=== PATIENT | male | born 1995 | race Caucasian/White ===

== ENCOUNTER 2018-02-15 20:17 | Emergency (ER) | payer OTHER ==
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
[2018-02-15] MEDS ORDERED: DIAZEPAM 5 MG TABLET PO ONE (23:14)
[2018-02-15] MEDS ORDERED: KETOROLAC TROMETHAMINE INJ/PF 30 MG/1 ML SDV IM ONE (23:14)
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
[2018-02-16 00:26] VITALS: BP 118/61
== END 2018-02-16 00:32 | disposition home or self-care (01) ==
LOC: ER 20:17
DX: S16.1XXA Strain of muscle, fascia and tendon at neck level, initial encounter (principal); S46.912A Strain of unspecified muscle, fascia and tendon at shoulder and upper arm level, left arm, initial encounter; S46.911A Strain of unspecified muscle, fascia and tendon at shoulder and upper arm level, right arm, initial encounter; R03.0 Elevated blood-pressure reading, without diagnosis of hypertension; V89.2XXA Person injured in unspecified motor-vehicle accident, traffic, initial encounter; F17.200 Nicotine dependence, unspecified, uncomplicated
CPT/HCPCS: 99284; 96372; 72050; 72110; 73030 ×2; 72070; 72125; J1885

== ENCOUNTER 2018-11-12 05:30 | Emergency (ER) | payer OTHER ==
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
[2018-11-12] MEDS ORDERED: KETOROLAC TROMETHAMINE INJ/PF 30 MG/1 ML SDV IM ONE (07:09)
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
[2018-11-12 07:31] VITALS: BP 103/68
== END 2018-11-12 07:52 | disposition home or self-care (01) ==
LOC: ER 05:30
DX: M62.838 Other muscle spasm (principal); M89.8X1 Other specified disorders of bone, shoulder; V49.9XXA Car occupant (driver) (passenger) injured in unspecified traffic accident, initial encounter
CPT/HCPCS: 99283; 96372; 73020; J1885

== ENCOUNTER 2019-06-29 16:16 | Emergency (ER) | payer OTHER ==
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
[2019-06-29 18:25] VITALS: BP 120/67
== END 2019-06-29 18:25 | disposition home or self-care (01) ==
LOC: ER 16:16
DX: M79.672 Pain in left foot (principal); W19.XXXD Unspecified fall, subsequent encounter; F17.210 Nicotine dependence, cigarettes, uncomplicated
CPT/HCPCS: 99283

== ENCOUNTER → 2019-07-02 | Outpatient (CLI) | payer OTHER ==
[~2019-07-02] MED LIST: BUPIVACAINE HCL 0.5%-EPI 1:200000 INJ/PF 30 ML VIAL ONE; BUPIVACAINE HCL 0.5%/EPI 1:200000 INJ 1.8 ML CARTRIDGE ONE; TRANEXAMIC ACID INJ/PF 1,000 MG/10 ML SDV ONE
--- NOTE | 2019-07-05 16:31 | RADIOLOGY REPORT (SQ) ---
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 TECHNIQUE: Left ankle images acquired and stored on PACS. Multiplanar images include fat sensitive s equences as T1, fluid sensitive sequences as FST2/STIR, cartilage sensitive sequences as FSPD, and gr adient echo sequences. LIMITATIONS: None. FINDINGS: BONE MARROW: Marrow edema throughout the inferior calcaneal tuberosity. There is mild inf erior subcortical linear signal in the midst of the edema, suspicious for subtle stress fracture. An terior to this in the calcaneal body, there is a circumscribed mass which fills the width of the calc aneus. This measures up to 2.7 cm transverse dimension. Relatively geographic and well-circumscribe d. Suspect a complicated cyst with mild heterogeneous signal within. On the coronal proton density sequence (series 3, image 14), there appears to be communication with the subtalar joint. EFFUSIONS: No subtalar or tibiotalar effusions. No loose bodies. OSSEOUS ARTICULATIONS: Normal tibiotalar, subtalar, talonavicular and calcaneocuboid joints. TALAR DOME AND TIBIAL PLAFOND: Normal cartilage. No osteochondral defect. ACHILLES TENDON: Intact without partial or full-thickness tear. No adjacent bursal fluid or edema. TIBIALIS ANTERIOR TENDON: Intact without edema at the 1st MT attachment. TIBIALIS POSTERIOR TENDON: Normal morphology and no edema at the navicular attachment. No tendon batista th fluid. FLEXOR HALLUCIS LONGUS AND FLEXOR DIGITORUM TENDONS: Normal morphology and no tendon sheath fluid. No edema of the os trigonum. PERONEUS LONGUS AND BREVIS TENDON: Normal morphology and no tendon sheath fluid. No subluxation. ATFL, CFL, PTFL: Generally intact. Small corticated avulsion fragment is suggested along the tip of the fibula. This contains no edema and looks chronic. DELTOID LIGAMENT: Visualized components intact. TARSAL TUNNEL: No masses. No muscle atrophy. SINUS TARSI: No fluid. No reactive marrow edema or erosions. PLANTAR FASCIA: No signal alteration or tear. ADJACENT SOFT TISSUES: No masses. OTHER: No other significant finding. IMPRESSION: 1. Mild stress fracture in the calcaneal tuberosity with associated edema. 2. Cyst in the mid calcaneus looks slightly complicated. At least a portion of this may be related t o intraosseous ganglion communicating with the subtalar joint (which otherwise looks normal). No kaye dence of fracture of this lesion. 3. Ligaments and tendons generally intact about the ankle. Findings discussed with Dr. Gordon 07/05/2019. TECHNICAL DOCUMENTATION: JOB ID: [id number] [employer]- All Rights Reserved Reading location - IP/workstation name: [email or web address]
== END ==
LOC: RAD 13:05
PROVIDERS: ATTEND Orthopaedic Surgery
DX: D36.7 Benign neoplasm of other specified sites (principal)

== ENCOUNTER 2019-07-07 05:27 | Day surgery (SDC) | payer OTHER ==
[~2019-07-07 05:27] MED LIST changes: -BUPIVACAINE HCL 0.5%-EPI 1:200000 INJ/PF 30 ML VIAL ONE; -BUPIVACAINE HCL 0.5%/EPI 1:200000 INJ 1.8 ML CARTRIDGE ONE; +CEFAZOLIN SODIUM 2 GM in DEXTROSE 5%-WATER 100 ML IV PRN; -TRANEXAMIC ACID INJ/PF 1,000 MG/10 ML SDV ONE
[2019-07-07] MEDS ORDERED: ALBUTEROL SULFATE 0.083% NEB 2.5 MG/3 ML AMPUL NEB ONE (06:25)
[2019-07-07] MEDS ORDERED: PROPOFOL INJ 200 MG/20 ML VIAL IV ONE (06:42)
[2019-07-07] MEDS ORDERED: MIDAZOLAM 2 MG/2 ML INJ ONE (06:42)
[2019-07-07] MEDS ORDERED: FENTANYL CITRATE INJ/PF 100 MCG/2 ML AMPUL ONE ×3 (06:42→09:18)
[2019-07-07 06:47] LABS: ABSOLUTE EOSINOPHILS # (AUTO) 0.3 10^3/uL (0.0-0.6); ABSOLUTE LYMPHOCYTES (AUTO) 3.6 10^3/uL (0.5-4.7); ABSOLUTE MONOCYTES (AUTO) 0.9 10^3/uL (0.1-1.4); ABSOLUTE NEUT (AUTO) 4.3 10^3/uL (1.7-8.2); BASOPHILS % (AUTO) 0.5 % (0-2); EOSINOPHILS % (AUTO) 2.8 % (0-6); HEMATOCRIT 43.1 % (37.9-51.0); HEMOGLOBIN 14.6 g/dL (13.5-17.0); LYMPHOCYTES % (AUTO) 39.4 % (13-45); MEAN CORPUSCULAR HEMOGLOBIN 30.6 pg (27.0-33.4); MEAN CORPUSCULAR VOLUME 90 fl (80-97); MONOCYTES % (AUTO) 9.9 % (3-13); PLATELET COUNT 234 10^3/uL (150-450); RED BLOOD COUNT 4.79 10^6/uL (4.35-5.55); RED CELL DISTRIBUTION WIDTH 13.3 % (11.5-14.0); SEGMENTED NEUTROPHILS % (AUTO) 47.4 % (42-78); TOTAL CELLS COUNTED % (AUTO) 100 %; WHITE BLOOD COUNT 9.2 10^3/uL (4.0-10.5)
[2019-07-07 06:56] LABS: ANION GAP 6 (5-19); BLOOD UREA NITROGEN 10 mg/dL (7-20); CALCIUM 9.4 mg/dL (8.4-10.2); CARBON DIOXIDE 29 mmol/L (22-30); CHLORIDE 105 mmol/L (98-107); GLUCOSE 91 mg/dL (75-110); POTASSIUM 4.3 mmol/L (3.6-5.0)
[2019-07-07] MEDS ORDERED: BUPIVACAINE HCL 0.5%-EPI 1:200000 INJ/PF 30 ML VIAL INJ ONE (07:52)
[2019-07-07] MEDS ORDERED: DIPHENHYDRAMINE HCL 50 MG/ML VIAL IV PRN (07:54)
[2019-07-07] MEDS ORDERED: OXYCODONE-ACETAMINOPHEN 5-325 MG TABLET PO PRN ×2 (07:54)
[2019-07-07] MEDS ORDERED: PROMETHAZINE HCL INJ 25 MG/1 ML VIAL IV PRN ×2 (07:54)
[2019-07-07] MEDS ORDERED: FENTANYL CITRATE INJ/PF 100 MCG/2 ML AMPUL IV PRN ×3 (07:54)
[2019-07-07] MEDS ORDERED: MEPERIDINE HCL/PF INJ 25 MG/1 ML DISP.SYRIN IV PRN (07:54)
[2019-07-07] MEDS ORDERED: HYDROMORPHONE HCL INJ/PF 2 MG/ML AMPULE ONE (07:56)
--- NOTE | 2019-07-07 08:41 | Discharge Summary ---
Discharge Summary (SDC) - Discharge Final Diagnosis: Left calcaneal neoplasm Date of Surgery: 07/07/19 Discharge Date: 07/07/19 Condition: Good Treatment or Instructions: Weightbearing as tolerated in the cam walker. Leave compressive wrap in place until you return to the office. Prescriptions: Oxycodone HCl/Acetaminophen [Percocet 5-325 mg Tablet] 1 tab PO Q6 PRN #40 tablet PRN Reason: Discharge Diet: As Tolerated, Regular Discharge Activity: Balance Activity w/Rest, No tub bath Home Care Assistance: None Needed Report the Following to Your Physician Immediately: Shortness of Breath, Fever over 101 Degrees, Drainage-Foul Smelling
--- NOTE | 2019-07-07 08:44 | Operative Report ---
Operative Report DATE OF SURGERY: 07/07/19 PREOPERATIVE DIAGNOSIS: Left calcaneal neoplasm OPERATION: Marginal resection left calcaneal neoplasm SURGEON: ELIU ADAMSON ANESTHESIA: GA TISSUE REMOVED OR ALTERED: Frozen section sent to pathology. Diagnosis returned as sufficient tissue for future diagnosis ESTIMATED BLOOD LOSS: 50 PROCEDURE: With the patient in a decubitus position on the operative table left lower extremities prepped and draped in sterile fashion. Limb is elevated for exsanguination tourniquet inflated 280 torr. A curvilinear incision was made over the lateral surface the calcaneus along its posterior and plantar aspects. A single soft tissue flap is raised including the calcaneal periosteum. The underlying palpable calcaneal cortical bone is visualized. An osteotome was used to fashion a cortical opening in the underlying tissues removed using a curette. The underlying tissue has a red meaty appearance to it without any evidence of chondroid tissue or potentially lipid. This is sent to pathology for frozen section diagnosis. Diagnosis is returned as of sufficient tissue for diagnosis but diagnosis deferred. At this point I made a decision to treat this as a benign lesion. Manger of the lesion is evacuated. I used a TPS bur to bur the edges of the cavity. The cavity was then copiously irrigated with bulb lavage. The cavity is packed with cancellus bone chips. The tourniquet is deflated. Hemostasis obtained with electrocautery. The wound was then closed in layers interrupted Vicryl followed by nylon. A sterile compressive dressing was applied and the patient's return to his cam walker. He subsequently returned to the PACU in satisfactory condition.
[2019-07-07] MEDS ORDERED: ACETAMINOPHEN 1,000 MG/100 ML RTUPB IV ONE (09:29)
[2019-07-07] MEDS ORDERED: KETOROLAC TROMETHAMINE INJ/PF 30 MG/1 ML SDV ONE (09:29)
--- NOTE | 2019-07-07 09:47 | RADIOLOGY REPORT (SQ) ---
EXAM DESCRIPTION: FOOT LEFT 2 VIEWS COMPLETED DATE/TIME: 07/07/2019 9:06 am REASON FOR STUDY: LEFT FOOT RESECTION/BIOPSY ASST WITH FLUORO IN OR D49.89 NEOPLASM OF UNSPECIFIED BEHAVIOR OF OTHER SPECIFIED S COMPARISON: None. FLUOROSCOPY TIME: Less than 1 minute Spot images saved to PACS. TECHNIQUE: Intra-operative images acquired during surgical procedure to evaluate progress. NUMBER OF IMAGES: 1 LIMITATIONS: None. FINDINGS: Fluoroscopy was provided for intraoperative procedure. Please refer to the operative repo rt for further discussion. IMPRESSION: IMAGE(S) OBTAINED DURING PROCEDURE. COMMENT: Quality ID [id number]: Final reports for procedures using fluoroscopy that document radiation exp osure indices, or exposure time and number of fluorographic images (if radiation exposure indices are not available) Please consult full operative report of the attending physician for description of the procedure. TECHNICAL DOCUMENTATION: JOB ID: [id number] [employer]- All Rights Reserved Reading location - IP/workstation name: [email or web address]
--- NOTE | 2019-07-07 09:48 | RADIOLOGY REPORT (SQ) ---
EXAM DESCRIPTION: NO CHG FLUORO COMPLETE DATE/TIME: 07/07/2019 9:06 am REASON FOR STUDY: LEFT FOOT RESECTION/BIOPSY ASST WITH FLUORO IN OR D49.89 NEOPLASM OF UNSPECIFIED BEHAVIOR OF OTHER SPECIFIED S FINDINGS: Please see combined report for performance of procedure and radiologic supervision and int erpretation. IMPRESSION: Please see combined report for performance of procedure and radiologic supervision and i nterpretation. Reading location - IP/workstation name: [email or web address]
[2019-07-07] MEDS ORDERED: OXYCODONE-ACETAMINOPHEN 5-325 MG TABLET ONE (10:07)
[2019-07-07] MEDS ORDERED: OXYCODONE-ACETAMINOPHEN 5-325 MG TABLET PO ONE (10:30)
[2019-07-07 11:48] VITALS: BP 110/60
[2019-07-07] MEDS ORDERED: LIDOCAINE 2% INJ-PF (20 MG/ML) 2 ML AMPUL ONE (13:43)
[2019-07-07] MEDS ORDERED: NEOSTIGMINE METHYLSULFATE 10 MG/10 ML VIAL ONE (13:43)
[2019-07-07] MEDS ORDERED: GLYCOPYRROLATE 1 MG/5 ML VIAL ONE (13:43)
[2019-07-07] MEDS ORDERED: ONDANSETRON HCL INJ/PF 4 MG/2 ML SDV ONE (13:43)
[2019-07-07] MEDS ORDERED: DEXAMETHASONE SOD PHOSPHATE INJ 4 MG/1 ML VIAL ONE (13:43)
[2019-07-07] MEDS ORDERED: ROCURONIUM BROMIDE INJ 50 MG/5 ML VIAL IV ONE (13:43)
== END 2019-07-07 10:55 | disposition home or self-care (01) ==
LOC: OROUT 05:27
PROVIDERS: ATTEND Orthopaedic Surgery
DX: D49.2 Neoplasm of unspecified behavior of bone, soft tissue, and skin (principal); M79.672 Pain in left foot; F17.210 Nicotine dependence, cigarettes, uncomplicated
CPT/HCPCS: 36415; 85025; 80048; 88342 ×2; 88341 ×2; 88305 ×2; 73620; 94640; 27647; J2250; J3490 ×4; J0690; J1100; J3010; J1885; J2710; J2405; J7060; J2704; J0131; 01480; J1170

== ENCOUNTER 2019-08-27 19:29 | Emergency (ER) | payer OTHER ==
--- NOTE | 2019-08-27 20:03 | ER Document Report ---
ED Medical Screen (RME) - General Chief Complaint: Foot Pain Stated Complaint: LEFT FOOT PAIN Time Seen by Provider: 08/27/19 19:58 Mode of Arrival: Ambulatory Information source: Patient Notes: Patient presents with a history of tumor removal to the left foot about 2 months ago. Patient states he started to have some discomfort yesterday and noticed some discoloration to the scar of his left foot. Patient denies any drainage from the wound. Patient denies any fever. Patient does report some swelling to the left lateral calcaneal area. I have greeted and performed a rapid initial assessment of this patient. A comprehensive ED assessment and evaluation of the patient, analysis of test results and completion of the medical decision making process will be conducted by additional ED providers. TRAVEL OUTSIDE OF THE [place] IN LAST 30 DAYS: No - Related Data Allergies/Adverse Reactions: No Known Allergies Allergy (Verified 06/29/19 16:16) Past Medical History - Past Medical History Cardiac Medical History: Denies: Hx Coronary Artery Disease, Hx Heart Attack, Hx Hypertension Pulmonary Medical History: Denies: Hx Asthma, Hx Bronchitis, Hx COPD, Hx Pneumonia Neurological Medical History: Denies: Hx Cerebrovascular Accident, Hx Seizures Renal/ Medical History: Denies: Hx Peritoneal Dialysis Musculoskeltal Medical History: Denies Hx Arthritis Psychiatric Medical History: Reports: Hx Depression - Immunizations Hx Diphtheria, Pertussis, Tetanus Vaccination: No Physical Exam - Vital signs Vitals: Temp Pulse Resp BP Pulse Ox 98.7 F 63 16 114/74 98 08/27/19 19:46 08/27/19 19:46 08/27/19 19:46 08/27/19 19:46 08/27/19 19:46 - Skin Skin Temperature: Warm Skin Moisture: Dry Skin Color: Other - Yellow-green discoloration to the posterior aspect of scar to left foot Course - Vital Signs Vital signs: Temp Pulse Resp BP Pulse Ox 98.7 F 63 16 114/74 98 08/27/19 19:46 08/27/19 19:46 08/27/19 19:46 08/27/19 19:46 08/27/19 19:46
[2019-08-27 20:24] LABS: ABSOLUTE EOSINOPHILS # (AUTO) 0.2 10^3/uL (0.0-0.6); ABSOLUTE LYMPHOCYTES (AUTO) 3.4 10^3/uL (0.5-4.7); ABSOLUTE MONOCYTES (AUTO) 1.1 10^3/uL (0.1-1.4); ABSOLUTE NEUT (AUTO) 7.2 10^3/uL (1.7-8.2); BASOPHILS % (AUTO) 0.3 % (0-2); EOSINOPHILS % (AUTO) 1.7 % (0-6); HEMATOCRIT 43.1 % (37.9-51.0); HEMOGLOBIN 14.8 g/dL (13.5-17.0); LYMPHOCYTES % (AUTO) 28.6 % (13-45); MEAN CORPUSCULAR HEMOGLOBIN 30.4 pg (27.0-33.4); MEAN CORPUSCULAR HGB CONC 34.4 g/dL (32.0-36.0); MEAN CORPUSCULAR VOLUME 88 fl (80-97); PLATELET COUNT 267 10^3/uL (150-450); RED BLOOD COUNT 4.89 10^6/uL (4.35-5.55); RED CELL DISTRIBUTION WIDTH 13.6 % (11.5-14.0); SEGMENTED NEUTROPHILS % (AUTO) 60.4 % (42-78); TOTAL CELLS COUNTED % (AUTO) 100 %; WHITE BLOOD COUNT 11.8 10^3/uL (4.0-10.5)
[2019-08-27 20:50] LABS: ANION GAP 7 (5-19); BLOOD UREA NITROGEN 11 mg/dL (7-20); CALCIUM 9.6 mg/dL (8.4-10.2); CARBON DIOXIDE 29 mmol/L (22-30); CHLORIDE 104 mmol/L (98-107); GLUCOSE 87 mg/dL (75-110); POTASSIUM 4.4 mmol/L (3.6-5.0)
--- NOTE | 2019-08-27 21:01 | ER Document Report ---
ED Extremity Problem, Lower - General Chief Complaint: Incision Pain Stated Complaint: LEFT FOOT PAIN Time Seen by Provider: 08/27/19 19:58 Mode of Arrival: Ambulatory Notes: Patient is a 24-year-old male that comes emergency department for chief complaint of left foot pain. He states that he had minimal discomfort yesterday to the left lateral area but today he started noticing some swelling and some redness and warmth so he came to be evaluated. Patient is postop benign tumor removal from the left calcaneal area by Dr. Gordon in June in the same area. He denies fever/chills, nausea/vomiting, or any other complaints. He denies medical history otherwise. He states he did just go back to work last week, he works in the [employer]. He denies that this ever gets a wet because he uses waders. TRAVEL OUTSIDE OF THE [place] IN LAST 30 DAYS: No - Related Data Allergies/Adverse Reactions: No Known Allergies Allergy (Verified 06/29/19 16:16) Past Medical History - General Information source: Patient - Social History Smoking Status: Current Every Day Smoker Chew tobacco use (# tins/day): No Frequency of alcohol use: Occasional Drug Abuse: None Lives with: Family Family History: Malignancy - grandmother Patient has suicidal ideation: No Patient has homicidal ideation: No - Past Medical History Cardiac Medical History: Denies: Hx Coronary Artery Disease, Hx Heart Attack, Hx Hypertension Pulmonary Medical History: Denies: Hx Asthma, Hx Bronchitis, Hx COPD, Hx Pneumonia Neurological Medical History: Denies: Hx Cerebrovascular Accident, Hx Seizures Renal/ Medical History: Denies: Hx Peritoneal Dialysis Musculoskeletal Medical History: Denies Hx Arthritis Psychiatric Medical History: Reports: Hx Depression Past Surgical History: Reports: Hx Orthopedic Surgery - Immunizations Hx Diphtheria, Pertussis, Tetanus Vaccination: Yes Review of Systems - Review of Systems Constitutional: No symptoms reported EENT: No symptoms reported Cardiovascular: No symptoms reported Respiratory: No symptoms reported Gastrointestinal: No symptoms reported Genitourinary: No symptoms reported Male Genitourinary: No symptoms reported Musculoskeletal: See HPI Skin: No symptoms reported Hematologic/Lymphatic: No symptoms reported Neurological/Psychological: No symptoms reported Physical Exam - Vital signs Vitals: Temp Pulse Resp BP Pulse Ox 98.7 F 63 16 114/74 98 08/27/19 19:46 08/27/19 19:46 08/27/19 19:46 08/27/19 19:46 08/27/19 19:46 - Notes Notes: GENERAL: Alert, interacts well. No acute distress. HEAD: Normocephalic, atraumatic. EYES: Pupils equal, round, and reactive to light. Extraocular movements intact. ENT: Oral mucosa moist, tongue midline. Oropharynx unremarkable. NECK: Full range of motion. Supple. Trachea midline. LUNGS: Clear to auscultation bilaterally, no wheezes, rales, or rhonchi. No respiratory distress. HEART: Regular rate and rhythm. No murmur ABDOMEN: Soft, non-tender. Non-distended. EXTREMITIES: There is slight warmth and minimal erythema over the left posterior lateral ankle just posterior to the lateral malleolus, there is some soft tissue swelling in this area as well. Some mild pain with palpation but no severe pain to palpation of the area. Normal foot, ankle, leg exam otherwise. Normal capillary refill and sensation. BACK: no cervical, thoracic, lumbar midline tenderness. No saddle anesthesia, normal distal neurovascular exam. NEUROLOGICAL: Alert and oriented x3. Normal speech. Cranial nerves II through XII grossly intact. PSYCH: Normal affect, normal mood. SKIN: Warm, dry, normal turgor. No rashes or lesions noted. Course - Re-evaluation Re-evalutation: Patient does have soft tissue swelling, there is some warmth and minimal erythema to the area but no significant tenderness and unremarkable otherwise. CBC unremarkable, chemistry unremarkable, x-ray showing postoperative changes but no overt signs of infection. ESR and CRP were added and these are both negative. In addition his physical exam is reassuring and I do not suspect infection. I did discuss with orthopedics on-call Dr. Vanegas, he recommends crutches, ankle stirrup and Fredo wrap, and close follow-up with Dr. Gordon. I did discuss this with patient, discussed return precautions. Patient states appreciation and agreement. Stable time of discharge. - Vital Signs Vital signs: Temp Pulse Resp BP Pulse Ox 98.2 F 62 16 112/57 L 100 08/27/19 23:34 08/27/19 23:34 08/27/19 23:34 08/27/19 23:34 08/27/19 23:34 - Laboratory Result Diagrams: 08/27/19 20:12 08/27/19 20:12 Laboratory results interpreted by me: 08/27/19 20:12 WBC 11.8 H Procedures - Immobilization Left ankle Pre-Proc Neuro Vasc Exam: Normal Immobilizer type: Fredo wrap, Ankle stirrup Performed by: PCT Post-Proc Neuro Vasc Exam: Normal Alignment checked and good: Yes Discharge - Discharge Clinical Impression: Post-op pain Left ankle pain Qualifiers: Chronicity: acute Qualified Code(s): M25.572 - Pain in left ankle and joints of left foot Condition: Stable Disposition: HOME, SELF-CARE Additional Instructions: There appears to be some postsurgical changes on x-ray but no concerning findings are seen otherwise. Your examination indicates soft tissue swelling but this does not appear infected at this time, your labs are reassuring as well. I spoke with Dr. Vanegas (communications systems engineer [facility]oped[facility]). Recommendation is for you to use the ankle stirrup and Fredo wrap, crutches, the anti-inflammatory, elevate and ice the foot, and follow-up with Dr. Gordon. Symptoms should resolve. Return if you worsen including increased swelling, developing or spreading redness, fever/chills, severe pain, or any other concerning symptoms. Prescriptions: Naproxen 500 mg PO BID PRN #20 tablet PRN Reason: Forms: Return to Work
--- NOTE | 2019-08-27 21:18 | RADIOLOGY REPORT (SQ) ---
EXAM DESCRIPTION: XR FOOT 3 OR MORE VIEWS COMPLETED DATE/TME: 08/27/2019 20:00 CLINICAL HISTORY: 24 years, Male, Hx tumor removal, ?infection COMPARISON: Prior study from 06/29/2019. NUMBER OF VIEWS: Three TECHNIQUE: Frontal, oblique, and lateral radiographs were obtained LIMITATIONS: None. FINDINGS: Pre-existing cystic lesion located within the anterior calcaneus has been packed with hyperdense material. Remaining visualized osseous structures appear normal without acute fracture or dislocation. Areas of hyperdensity are noted about the soft tissues just lateral to the calcaneus on the oblique projection, presumably postsurgical in etiology. Focal deformity involving the lateral aspect of the calcaneus at this location is also presumably postsurgical. IMPRESSION: Areas of hyperdensity located within the soft tissues just lateral to the calcaneus on the oblique projection are presumably postoperative in etiology/related to heterotopic new bone formation. Additional focal deformity involving the lateral aspect of the calcaneus at this location is also presumably postsurgical. Correlate with surgical history. If there is continued concern for infection, consider further assessment with MR. copyright 2010 [employer]- All Rights Reserved
--- NOTE | 2019-08-27 21:19 | RADIOLOGY REPORT (SQ) ---
2 VIEWS OF LEFT CALCANEUS EXAM DATE: 08/27/2019 8:01 PM [employer] SUPERINTENDENT HISTORY: hx tumor removal, ?infection. COMPARISON: 07/07/2019 FINDINGS: There are scattered areas of ossification in the soft tissues surrounding the calcaneus which may be postoperative. Presumably bone graft material is seen within the calcaneal lucent lesion. No acute fractures seen. IMPRESSION: Postoperative changes surrounding the calcaneus. Consider MRI if there is high concern for infection.
[2019-08-27 23:34] VITALS: BP 112/57
== END 2019-08-27 23:37 | disposition home or self-care (01) ==
LOC: ER 19:29
DX: Z98.890 Other specified postprocedural states (principal); M79.672 Pain in left foot; F17.200 Nicotine dependence, unspecified, uncomplicated
CPT/HCPCS: 36415; 85025; 85652; 86140; 80048; 73630; 73650; L1902; 99283

== ENCOUNTER 2020-06-13 12:45 | Emergency (ER) | payer OTHER ==
[2020-06-13 12:52] VITALS: BP 128/61
[2020-06-13] MEDS ORDERED: DIPHENHYDRAMINE HCL 50 MG/ML VIAL IV ONE (14:02)
[2020-06-13] MEDS ORDERED: KETOROLAC TROMETHAMINE INJ/PF 30 MG/1 ML SDV IV ONE (14:02)
[2020-06-13] MEDS ORDERED: METOCLOPRAMIDE HCL INJ/PF 10 MG/2 ML SDV IV ONE (14:02)
[2020-06-13] MEDS ORDERED: NORMAL SALINE 1000 ML 1,000 ML IV ONE (14:03)
--- NOTE | 2020-06-13 14:07 | ER Document Report ---
ED General - General Chief Complaint: Vomiting Stated Complaint: VOMITING,DIZZINESS Notes: Patient is a 25-year-old white male with a history of migraine headaches who presents the emergency department the chief complaint of headache for the past 2 days. Patient reports she awoke 2 days ago and was feeling generally unwell but unable to pinpoint specifically what was wrong. He states that he stayed home that day from work and slept in to try to feel better. He states he woke around 11 AM with a headache. States the headache has gradually intensified over the past 2 days. Reports it being in the frontal forehead area and expands involving the top of the scalp towards the occiput. He states this feels similar to his prior migraine headaches. He reports that he is not had one in a long time however. He states he used to take Excedrin Migraine and that would work well for his headaches. He reports his mother had migraine headaches as well. He states that this is been associated with a few episodes of nausea and vomiting. He reports that is normal for his headaches. He denies any known fevers. He reports getting checked regularly at work for fever and has had none. He denies any recent travel or known sick contacts. Denies any numbness, tingling or weakness. Denies any dizziness or visual disturbances upon my history. Denies any neck or back pain. He reports some bilateral lower chest wall and abdominal wall discomfort secondary to retching and vomiting. Denies any diarrhea. TRAVEL OUTSIDE OF THE [place] IN LAST 30 DAYS: No - Related Data Allergies/Adverse Reactions: No Known Allergies Allergy (Verified 06/13/20 14:12) Past Medical History - Social History Smoking Status: Unknown if Ever Smoked Family History: Malignancy - grandmother - Past Medical History Cardiac Medical History: Denies: Hx Coronary Artery Disease, Hx Heart Attack, Hx Hypertension Pulmonary Medical History: Denies: Hx Asthma, Hx Bronchitis, Hx COPD, Hx Pneumonia Neurological Medical History: Denies: Hx Cerebrovascular Accident, Hx Seizures Renal/ Medical History: Denies: Hx Peritoneal Dialysis Musculoskeletal Medical History: Denies Hx Arthritis Psychiatric Medical History: Reports: Hx Depression Past Surgical History: Reports: Hx Orthopedic Surgery - Immunizations Hx Diphtheria, Pertussis, Tetanus Vaccination: Yes Review of Systems - Review of Systems Constitutional: denies: Fever EENT: denies: Throat pain Cardiovascular: denies: Syncope Respiratory: denies: Short of breath Gastrointestinal: denies: Abdominal pain Genitourinary: denies: Pain Male Genitourinary: denies: Testicular pain Musculoskeletal: denies: Neck pain Skin: denies: Change in color Hematologic/Lymphatic: denies: Easy bruising Neurological/Psychological: Headaches Physical Exam - Vital signs Vitals: Temp Pulse Resp BP Pulse Ox 97.8 F 78 16 128/61 H 100 06/13/20 12:51 06/13/20 12:51 06/13/20 12:51 06/13/20 12:51 06/13/20 12:51 - General General appearance: Appears well, Alert In distress: None - HEENT Head: Normocephalic, Atraumatic Eyes: Normal Conjunctiva: Normal Extraocular movements intact: Yes Eyelashes: Normal Pupils: PERRL Ears: Normal External canal: Normal Tympanic membrane: Normal Nasal: Normal Mouth/Lips: Normal Mucous membranes: Normal Pharynx: Normal Neck: Normal, Supple - Respiratory Respiratory status: No respiratory distress Chest status: Nontender Breath sounds: Normal Chest palpation: Normal - Cardiovascular Rhythm: Regular Heart sounds: Normal auscultation - Abdominal Inspection: Normal Distension: No distension Bowel sounds: Normal Tenderness: Nontender Organomegaly: No organomegaly - Extremities General upper extremity: Normal inspection. No: Edema General lower extremity: Normal inspection. No: Edema - Neurological Neuro grossly intact: Yes Cognition: Normal Orientation: AAOx4 - Psychological Associated symptoms: Normal affect, Normal mood - Skin Skin Temperature: Warm Skin Moisture: Dry Skin Color: Normal Course - Re-evaluation Re-evalutation: 06/13/20 15:41 Reevaluation at this time. Patient reports his headache is nearly completely resolved. States he is feeling much better. He is stable and appropriate for discharge and outpatient follow-up. Suspect this is 1 of his typical headaches that we discussed. Counseled him regarding the importance of outpatient follow- up and advised to return here or any ER immediately with any new, persistent or worsening symptoms. He verbalized understood and agreed. - Vital Signs Vital signs: Temp Pulse Resp BP Pulse Ox 97.8 F 78 16 128/61 H 100 06/13/20 13:46 06/13/20 12:51 06/13/20 12:51 06/13/20 12:51 06/13/20 12:51 Discharge - Discharge Clinical Impression: Cephalgia Qualifiers: Headache type: unspecified Headache chronicity pattern: acute headache Intractability: not intractable Qualified Code(s): R51 - Headache Condition: Stable Disposition: HOME, SELF-CARE Instructions: Headache ([facility]) Additional Instructions: Follow-up with your regular doctor in 2 to 3 days for reevaluation. Return here or any ER immediately with any new, persistent or worsening symptoms. Referrals: [facility] [NO LOCAL MD] - Follow up as needed
== END 2020-06-13 16:02 | disposition home or self-care (01) ==
LOC: ER 12:45
DX: R51 Headache (principal); R11.2 Nausea with vomiting, unspecified; Z86.69 Personal history of other diseases of the nervous system and sense organs; Z82.0 Family history of epilepsy and other diseases of the nervous system
CPT/HCPCS: 99284; 96361; 96374; 96375; J1200; J1885; J2765; J7030